=== PATIENT | female | born 1990 | race Caucasian/White ===

== ENCOUNTER 2018-01-21 15:50 | Outpatient (CLI) | payer MEDICAID, SELFPAY ==
[2018-01-21 15:56] VITALS: BMI 31.2
[2018-01-21 16:40] LABS: Hematocrit 33.3 % (37-47); Hemoglobin 11.4 g/dl (12.0-15.0); Mean Corp Hgb Conc 34.2 g/gl (32-36); Mean Corpuscular Hgb 30.6 pg (27.0-32.0); Mean Corpuscular Volume 89.3 fL (81-99); Mean Platelet Vol. 10.5 fl (6.2-12.0); Platelet Count 181 K/mm3 (150-450); RBC Distribution Width CV 13.7 % (11.6-14.6); RBC Distribution Width SD 43.8 fl (35.1-43.9); Red Blood Count 3.73 M/mm3 (4.2-5.4)
[2018-01-21 16:41] LABS: Scan Indicated on CBC? Y/N NO
[2018-01-21 16:50] LABS: Protein, Urine (Random) 110.8 mg/dL (<11.9); Protein:Creat Ratio 710 mg/g CRE (0-200)
[2018-01-21 16:53] LABS: International Normalized Ratio 0.9; Prothrombin Time (Protime)PT. 12.2 SECONDS (11.7-14.9)
[2018-01-21 16:54] LABS: Partial Thromboplast Time 25.8 Seconds (24.1-36.2)
[2018-01-21 16:59] LABS: AST(SGOT) 20 U/L (15-37); Alanine Aminotransfer ALT/SGPT 20 U/L (13-56); EST Glomerular Filtration Rate 127 mL/min (>60); Est Glom Filt Rate - Afr Amer 154 mL/min (>60); Estimated Creatinine Clearance 101.16 ml/min; Uric Acid 6.6 mg/dL (2.6-6.0)
[2018-01-21 17:00] VITALS: BP 161/88; PULSE 71
[2018-01-21] MEDS: Betamethasone/Betamethasone 30 MG/5 ML Vial 12 MG IM (17:26)
--- NOTE | 2018-01-21 17:32 | PCM.HP.OB ---
- Problem List (1) Proteinuria affecting in third trimester Status: Acute (2) Gestational hypertension Status: Acute Qualifiers: Trimester: third trimester Qualified Code(s): O13.3 - Gestational [-induced] hypertension without significant proteinuria, third trimester History Date of Admission: 01/21/18 Final ERASTO: 03/13/18 Final ERASTO Source: US <20 weeks Gestational age: 32 Weeks and 5 Days History of this : Patient presented for routine visit today @ 32.5 weeks without complaint and was noted to have elevated blood pressure x 3 in office (148/92, 150/107, 154/100). +2 proteinuria also noted on random urine dip. Patient asymptomatic; denies any GIBBS, denies scotoma and RUQ pain. Pertinent Past Medical History: Hx of mild Hyperlipidemia mild persistent asthma without complication Seasonal allergies Sterilization consult Hx of kidney stones anxiety Allergies No Known Allergies Allergy (Verified 11/15/17 18:13) Current Medications Betamethasone Acet/Betameth SodPhos (Celestone) 12 mg IM Q24H GONSALO Stop: 01/22/18 17:16 Calcium Gluconate () 1 gm IV X1 PRN PRN Reason: MAGNESIUM TOXICITY Hydralazine HCl (Apresoline) 5 - 10 mg IV Q20M PRN; Protocol PRN Reason: SBP>160/110mmHg Labetalol HCl (Trandate) 20 - 40 mg IV Q10M PRN; Protocol PRN Reason: BP>160/110mmHg Magnesium Sulfate (4 Gm/100 Ml) 2 gm IV X1 PRN PRN Reason: SEIZURE Midazolam HCl (Versed) 2 mg IV Q5M PRN PRN Reason: SEIZURE Smoking Status: Never smoker Alcohol: None Drug Use: none Number of Fetus(es): 1 Physical Exam General: Alert, Oriented x3, Cooperative, No apparent distress Cardiovascular: Regular rate, Regular Rhythm, Normal S1, Normal S2, No murmurs Lungs: Clear to auscultation, Normal air movement Abdomen: Soft, Non Tender, Gravid Extremities:: No edema, Normal pulses, Deep tendon reflexes Estimated gestational size: Appropriate for gestational size Presentation: Cephalic Cervix Dilation (cm): 0 Station: -3 Effacement (%): 0 Assessment/Plan Active and Suspected Problems Proteinuria affecting in third trimester (Acute) Gestational hypertension (Acute) Plan: 27 y/o at 32.5 weeks presents for hypertension and proteuria - Patient seen and examined with normal findings noted. - Hydrochlorothiazide 5mg IV push x 1 - Betamethasone 12mg IM given - Magnesium sulfate bolus 4mg initiated, then 2mg/hour Maintenance drip started - Consultation with M recommendation for transfer given. - Discussed findings and options and patient agrees to transfer to [facility] for further work up. Yecenia Casey CNM in collaboration and consultation with Miracle Ramirez MD
[2018-01-21] MEDS: Magnesium Sulfate 20 GM/500 ML BAG IV (17:50)
[2018-01-21 19:06] LABS: Group B Strep DNA By PCR Negative (Negative); Internal Control PASS; Probe Check PASS; Specimen Processing Control PASS
== END 2018-01-21 18:30 | disposition short-term general hospital (02) ==
LOC: WPOUT 15:54 → WP 15:54
PROVIDERS: Family Provider Family Medicine; PCP Family Medicine; Visit Provider Obstetrics & Gynecology
DX: O14.93 Unspecified pre-eclampsia, third trimester (principal); Z3A.32 32 weeks gestation of pregnancy
CPT/HCPCS: 96365; 96366; 96375; 36415; 59025; 59050; 82565; 82570; 84156; 84450; 84460; 84550; 85027; 85610; 85730; 87081; 87653; 94760; 96372; 99218; J7120; A4216; G0378; J0702

== ENCOUNTER 2018-11-28 10:00 | Emergency (ER) | payer MEDICAID, SELFPAY ==
[2018-11-28 10:02] VITALS: BP 153/105; PULSE 85; RESP 12; TEMP 36.6; O2SAT 100; BMI 29.2
--- NOTE | 2018-11-28 10:21 | ED.VISSUMM ---
- ER Visit Summary Date of Service: 11/28/18 Chief Complaint: Left posterior rib cage pain History of Present Illness: The patient is a 28 F via left posterior rib cage pain that started about a week ago. She denies any obvious fall or trauma. No prior history. She denies shortness of breath. Says it is worse with movement. She denies any chest pain. Said it radiates from her left posterior ribs around the left side of her rib cage. No hemoptysis. No leg swelling. She is never had a pneumothorax or PE before. She has had no recent travel or surgery. She is on control. Physical Examination: Well-appearing young female. Vital signs are stable. She is afebrile. Pulse ox 100% on room air. Her heart rate is 85. She is in no distress. HEENT exam unremarkable. Neck nontender. Lungs clear to auscultation bilaterally. Heart regular rhythm no murmur. Chest wall nontender anteriorly. Abdomen soft and nontender. Normal bowel sounds no peritoneal signs. Extremities patient is moving all 4. Neurovascularly intact. Calves are nontender without edema or cords. Back exam reproducible tenderness over left posterior rib cage. There is no ecchymosis or bruising. No signs of trauma. No bony deformities. No subcu air. Neurologically patient is awake and alert with no focal motor deficits. Test Results: Two-view chest x-ray shows no acute abnormality. Normal cardiac silhouette and lung lauren. No bony abnormalities. Read by myself. Emergency Department Course and Treatment: Reproducible chest wall pain. Repeat exam doing well at 10:38 AM. I went over the x-ray results with the patient. Treatment Plan: Motrin for pain. Ice to the area. Follow-up if not improving. Return if worse. Disposition: Discharge Impression: Acute left posterior rib cage pain secondary to intercostal muscle strain This note was generated with [facility] dictation software. It may contain incorrect words, spelling, and punctuation that were not noted in review of the chart prior to signing ED Disposition - Plan for ED Patient: Chief Complaint: Chest Other Referrals: Jack Longoria MD [Primary Care Provider] -
--- NOTE | 2018-11-28 10:22 | RAD_ITS ---
STUDY: X-RAY CHEST REASON FOR EXAM: Female, 28 years old. Left posterior rib cage pain TECHNIQUE: PA and lateral views of the chest. COMPARISON: None. FINDINGS: The lungs are clear and expanded. There is no demonstrated pleural abnormality. Normal size heart. Normal mediastinum and sofi. Normal visualized pulmonary arteries. Normal visualized aortic arch and descending thoracic aorta. Normal visualized thoracic spine. Normal visualized ribs, clavicles, and shoulders. There is no demonstrated abnormality of the visualized soft tissue structures of the upper abdomen. RAD/Chest PA and Lateral IMPRESSION: Normal x-ray examination of the chest. Electronically Signed: Lorenzo Olivares DO at 10:40 EST Tel , Service support ,
--- NOTE | 2018-11-28 10:39 | ED.DEP ---
ED Disposition - Plan for ED Patient: Disposition: Home or Assisted Living Chief Complaint: Chest Other Instructions: ED Strain Chest Wall Referrals: Jack Longoria MD [Primary Care Provider] - 1 Week if not improving Additional Instructions: Hot shower, warm bath and ice to the area. Motrin for pain and inflammation. All up with not getting better or return to the ER feeling worse.
--- NOTE | 2018-11-28 10:46 | ED.RN ---
DISCHARGE INSTRUCTIONS GIVEN TO AND REVIEWED WITH PATIENT, PATIENT DENIES QUESTIONS OR CONCERNS AND VOICES UNDERSTANDING OF DISCHARGE INSTRUCTIONS. PT AMBULATES OUT OF ROOM WITHOUT DIFFICULTY.
== END 2018-11-28 10:47 | disposition home or self-care (01) ==
PROVIDERS: Emergency Provider Emergency Medicine; Family Provider Family Medicine; PCP Family Medicine
DX: S29.011A Strain of muscle and tendon of front wall of thorax, initial encounter (principal); X58.XXXA Exposure to other specified factors, initial encounter; J45.909 Unspecified asthma, uncomplicated; Z72.0 Tobacco use
CPT/HCPCS: 71046; 99282

== ENCOUNTER 2019-08-16 10:40 | Emergency (ER) | payer MEDICAID, SELFPAY ==
[2019-08-16 10:41] VITALS: BP 156/77; PULSE 89; RESP 12; TEMP 36.4; O2SAT 97; BMI 30.1
--- NOTE | 2019-08-16 10:59 | CT_ITS ---
STUDY: CT ABDOMEN AND PELVIS WITH CONTRAST REASON FOR EXAM: Female, 29 years old. Blood in the stool. RADIATION DOSAGE (If Supplied By Facility): CTDIvol = ( 12.11 ) mGy, DLP = ( 718.32 ) mGycm TECHNIQUE: Transaxial images were obtained from the dome of the diaphragm to the symphysis pubis with oral contrast. IV/Oral Isovue 300 100 was administered. Sagittal and coronal images were reconstructed. Individualized dose optimization techniques were used for this CT. COMPARISON: None. FINDINGS: The visualized lung bases are unremarkable. The visualized portions of the heart are within normal limits. Normal liver. Normal gallbladder and extrahepatic biliary system. Normal spleen. Normal pancreas. Normal bilateral adrenal glands. Normal right kidney. Normal left kidney. There is a small hiatal hernia. Normal small intestine. There is evidence of a colitis involving the left hemicolon down to the rectum as well as the distal portion of the transverse colon. The appendix is visualized and appears normal. Normal abdominal aorta. Normal inferior vena cava. Normal retroperitoneum. Normal urinary bladder. Normal abdominal wall. Normal osseous structures. CT/Abdomen/Pelvis WITH Contrast IMPRESSION: Findings in keeping with colitis of the left hemicolon down to the rectum. Mild changes in the distal aspect of the transverse colon. Electronically Signed: Kosta Groves, at 13:19 EDT , Service support ,
--- NOTE | 2019-08-16 11:00 | ED.VIS.GEN ---
History of Present Illness Chief Complaint: Abd Pain Detail of Chief Complaint: Rectal bleeding Informant: Patient Onset: Today Current Severity: Mild Maximum Severity: Mild Narrative: Patient presents with rectal bleeding anytime she strains to urinate. She has not been passing stool. She denies rectal pain. She had some mild cramping in the lower abdomen. Patient denies history of ulcerative colitis, Crohn's disease, irritable bowel. She did have some hemorrhoids with her first . Past Medical History - Allergies and Home Meds Allergies/Adverse Reactions: Allergies No Known Allergies Allergy (Verified 08/16/19 10:41) Primary Care Physician: Oscar Parr MD [Primary Care Provider] - Prior records reviewed: Yes Past Medical History: - - Reviewed Lives: With Family Smoking Status: Current every day smoker Review of Systems General: Denies: Chills, Fever Eyes: Denies: Visual changes - bilaterally ENT: Denies: Bilateral ear pain Cardiovascular: Denies: Chest pain Respiratory: Denies: Dyspnea, Cough Gastrointestinal: Reports: Abdominal pain, - - Red blood per rectum. Denies: Nausea, Vomiting, Diarrhea Genitourinary: Denies: Dysuria Musculoskeletal: Denies: Extremity Pain Skin: Denies: Rash Neurological: Denies: Headache Endocrine: Denies: Polyuria, Polydipsia Hematologic: Denies: Easy bruising Allergy: Denies: Uticaria Physical Exam Vital Signs/Narrative: Vital Signs Temp Pulse Resp BP Pulse Ox 08/16/19 10:41 97.6 F L 89 12 156/77 H 97 Inital Vital Signs reviewed: Yes General: Well nourished, Well developed Head: Normocephalic ENT: Moist mucous membranes Neck: Supple Cardiovascular: Regular rate, Regular rhythm Respiratory: No distress, CTA bilaterally Abdomen: Soft, Nontender, Hypoactive bowel sounds Extremities: Nontender, No edema Skin: Normal color, No rash Neurological: Alert, Oriented x3 Psychological: Normal affect Diagnostic/Tx/Re-eval Impressions Abdomen/Pelvis CT 08/16/19 10:59 IMPRESSION: Findings in keeping with colitis of the left hemicolon down to the rectum. Mild changes in the distal aspect of the transverse colon. Electronically Signed: Kosta Groves, at 13:19 EDT , Service support , 08/16/19 10:59 Abdomen/Pelvis WITH Contrast [CT] Stat Laboratory Results 08/16/19 08/16/19 08/16/19 11:14 11:14 11:14 WBC 7.5 RBC 4.02 L Hgb 12.1 Hct 36.9 L MCV 91.8 MCH 30.1 MCHC 32.8 RDW Std Deviation 45.3 H RDW Coeff of Joselyn 13.3 Plt Count 252 MPV 8.7 Immature Gran % (Auto) 0.100 Neut % (Auto) 67.4 Lymph % (Auto) 21.7 Jessamine % (Auto) 7.9 Eos % (Auto) 2.8 Baso % (Auto) 0.1 Absolute Neuts (auto) 5.0 Absolute Lymphs (auto) 1.62 Nucleated RBC % 0 PT 13.1 INR 1.0 APTT 25.2 Sodium 138 Potassium 3.8 Chloride 106 Carbon Dioxide 27.0 Anion Gap 5 BUN 12 Creatinine 0.71 Estim Creat Clear Calc 83.98 Est GFR (MDRD) Af Amer 126 Est GFR (MDRD) Non-Af 104 BUN/Creatinine Ratio 17.0 Glucose 88 Calcium 8.7 Serum , Qual 08/16/19 11:14 WBC RBC Hgb Hct MCV MCH MCHC RDW Std Deviation RDW Coeff of Joselyn Plt Count MPV Immature Gran % (Auto) Neut % (Auto) Lymph % (Auto) Jessamine % (Auto) Eos % (Auto) Baso % (Auto) Absolute Neuts (auto) Absolute Lymphs (auto) Nucleated RBC % PT INR APTT Sodium Potassium Chloride Carbon Dioxide Anion Gap BUN Creatinine Estim Creat Clear Calc Est GFR (MDRD) Af Amer Est GFR (MDRD) Non-Af BUN/Creatinine Ratio Glucose Calcium Serum , Qual NEGATIVE - Medical Decision Making Test results discussed with the patient at bedside. She does have evidence of colitis of the left hemicolon and sigmoid. She will be given a dose of Augmentin. We will avoid Flagyl as she states she does drink alcohol on a regular basis. She will be referred to surgery for follow-up as she may need a colonoscopy. ED Disposition - Plan for ED Patient: Disposition: Home or Assisted Living Diagnosis: Colitis Instructions: Bacterial Gastroenteritis Prescriptions: Amox/Clavulanate Tablet [Augmentin Tablet] 875 mg PO Q12H #20 tablet Referrals: Oscar Parr MD [Primary Care Provider] - Molly Redmond MD [STAFF PHYSICIAN] -
[2019-08-16 11:21] LABS: Absolute Lymphocyte Count 1.62 X10^3/uL (0.83-4.51); Basophil# 0.01 X10^3/uL; Basophil% 0.1 % (0-1); Eosinophil# 0.21 X10^3/uL; Eosinophils% 2.8 % (0-5); Hematocrit 36.9 % (37-47); Hemoglobin 12.1 g/dL (12.0-15.0); Lymphocyte # 1.62 X10^3/ul (4.0); Lymphocyte % 21.7 % (19-41); Mean Corp Hgb Conc 32.8 g/dL (32-36); Mean Corpuscular Hgb 30.1 pg (27.0-32.0); Mean Corpuscular Volume 91.8 fL (81-99); Mean Platelet Vol. 8.7 fl (6.2-12.0); Monocyte# 0.59 X10^3/uL; Monocyte% 7.9 % (0-10); NRBC Flagged by Analyzer 0 % (0-5); Neutrophil # 5.02 X10^3/uL (2.7-7.7); Neutrophil % 67.4 % (47-70); Platelet Count 252 K/mm3 (150-450); RBC Distribution Width CV 13.3 % (11.6-14.6); RBC Distribution Width SD 45.3 fl (35.1-43.9); Red Blood Count 4.02 M/mm3 (4.2-5.4); White Blood Count 7.5 K/mm3 (4.4-11.0)
[2019-08-16 11:28] LABS: Prothrombin Time (Protime)PT. 13.1 SECONDS (11.7-14.9)
[2019-08-16 11:29] LABS: Internal QC Validated? YES +Cl - CLEAR BKGD; Partial Thromboplast Time 25.2 Seconds (24.1-36.2); Pregnancy, Serum, hCG Quali. NEGATIVE Negative
[2019-08-16] MEDS: 0.9% Normal Saline 1,000 ML 150 ML IV (11:31)
[2019-08-16 11:34] LABS: Anion Gap 5 (5-15); BUN 12 mg/dL (7-18); Calcium,Total 8.7 mg/dL (8.5-10.1); Chloride 106 mmol/L (98-107); Creatinine, Serum 0.71 mg/dL (0.55-1.02); EST Glomerular Filtration Rate 104 mL/min (>60); Est Glom Filt Rate - Afr Amer 126 mL/min (>60); Estimated Creatinine Clearance 83.98 ml/min; Glucose 88 mg/dL (74-106); Potassium 3.8 mmol/L (3.5-5.1); Sodium Level 138 mmol/L (136-145)
[2019-08-16] MEDS: Amox/Clavulanate 875 MG Tablet PO (13:44)
== END 2019-08-16 13:46 | disposition home or self-care (01) ==
PROVIDERS: Emergency Provider Emergency Medicine; Family Provider Family Medicine; PCP Family Medicine
DX: K52.9 Noninfective gastroenteritis and colitis, unspecified (principal); F17.200 Nicotine dependence, unspecified, uncomplicated
CPT/HCPCS: 74177; 80048; 84703; 85025; 85610; 85730; 96360; 96361; 99283; J7030; Q9967; A4216

== ENCOUNTER 2019-11-09 05:38 | Day surgery (SDC) | payer MEDICAID, SELFPAY ==
--- NOTE | 2019-10-27 11:59 | HP.PCM_ITS ---
History and Physical Date of Admission: 11/09/19 Pre-Op History and Physical ? HPI: The patient is a 29 year old female presenting for pre-operative visit. She is scheduled for?laparoscopic bilateral salpingectomy, for?sterilization request on?. ??Procedure discussed along with risks, benefits and complications. ?Other alternatives discussed for management. Consent form signed??Yes.? PAST MEDICAL HISTORY PAST MEDICAL HISTORY Diagnosis Date ? Anemia ? ? ASCUS with positive high risk HPV cervical 06/2016 ? Asthma ? ? Generalized anxiety disorder ? ? Anxiety, Generalized ? Hyperlipidemia ? ? Kidney stones ? ? Preeclampsia, third trimester 01/21/2018 ? PAST SURGICAL HISTORY PAST SURGICAL HISTORY Procedure Laterality Date ? NONE ? CURRENT MEDICATIONS Current Outpatient Medications Medication Sig Dispense Refill ? fluticasone-vilanterol (BREO ELLIPTA) 200-25 mcg/dose inhaler Inhale 1 Inhalation as instructed once daily. 1 Each 5 ? albuterol HFA (VENTOLIN HFA) 90 mcg/actuation inhaler Inhale 2 Puffs as instructed every 4 hours as needed. 1 Inhaler 5 ? citalopram (CELEXA) 40 mg tablet Take 1 tablet by mouth once daily. 30 tablet 5 ? Levonorgestrel-Ethinyl Estrad (AVIANE) 0.1mg - 20mcg per tablet Take 1 tablet by mouth once daily. 84 tablet 3 ? montelukast (SINGULAIR) 10 mg tablet Take 1 tablet by mouth daily at bedtime. 30 tablet 11 ? fluticasone (FLONASE) 50 mcg/actuation nasal spray Use 1 Olive in each nostril once daily. 1 Bottle 5 ? No current facility-administered medications for this visit.? ? ALLERGIES:?Dogs; Seasonal Allergies ? PERSONAL HISTORY:? SOCIAL HISTORY Social History ? Tobacco Use ? Smoking status: Former Smoker ? ? Packs/day: 1.00 ? ? Years: 4.00 ? ? Pack years: 4.00 ? ? Types: Cigarettes ? ? Last attempt to quit: 05/18/2016 ? ? Years since quittin.4 ? Smokeless tobacco: Never Used ? Tobacco comment: Pt states she Vapes - no nicotine Substance Use Topics ? Alcohol use: Yes ? ? Comment: Rarely ? Drug use: No ? FAMILY HISTORY:? FAMILY HISTORY FAMILY HISTORY Problem Relation Age of Onset ? Stroke Father ? ? Alcohol/Drug Maternal Grandfather ?ETOH ? Cancer Maternal Grandfather ?LUNG CANCER ? Cancer Paternal Grandmother ?BREAST, LUNG ? Diabetes Paternal Grandfather ? ? Lipids Paternal Grandfather ? ? Hypertension Paternal Grandfather ? ? other (bladder cancer) Paternal Grandfather ? ? other (diverticulitis) Sister ? ? other (PCOS) Sister ? ? REVIEW OF SYMPTOMS: GENERAL: denies fevers or chills ENDOCRINOLOGY: has not been on steroids Cardiology : denies palpitations or chest pain Respiratory: denies SOB or cough Hematology: denies history of prolonged bleeding or easy bruising or VTE Allergy: Denies history of personal or family history of allergy to anesthesia ? ? PHYSICAL EXAMINATION: ? VITALS:?not currently . ? GENERAL:??The patient is well nourished, well hydrated in no acute distress. ?, The patient is oriented to time, place, and person. NECK:?Supple. No lynphadenopathy, normal thyroid, no thyromegaly. LUNGS:?Clear to auscultation bilaterally. no wheezes, rhonchi or rales HEART:?Regular rate and rhythm, Normal heart sounds and No murmurs or gallops ? IMPRESSION:?sterilization request ? PLAN:???The risks/benefits/alternatives and personal involved for the planned?laparoscopic bilateral salpingectomy?were reviewed with the patient. Her questions were answered to her satisfaction and she desires to proceed. ?Consent was signed. ?I reviewed with her postop instructions and expectations. ? ? I have reviewed and updated past medical and surgical history, medications and allergies? This history and physical was completed on 10/27/19.
[2019-11-09 06:10] VITALS: BP 133/86; PULSE 86; RESP 14; TEMP 36.6; O2SAT 100; BMI 29.9
[2019-11-09 06:12] LABS: Internal QC Validated? YES +Cl - CLEAR BKGD; Pregnancy, Urine Negative Negative
[2019-11-09] MEDS: Celecoxib 200 MG Capsule PO (06:20)
[2019-11-09] MEDS: Acetaminophen 500 MG Tablet 1000 MG PO (06:20)
[2019-11-09 06:26] LABS: Hematocrit 37.3 % (37-47); Hemoglobin 12.2 g/dL (12.0-15.0); Mean Corp Hgb Conc 32.7 g/dL (32-36); Mean Corpuscular Hgb 29.7 pg (27.0-32.0); Mean Corpuscular Volume 90.8 fL (81-99); Mean Platelet Vol. 9.2 fl (6.2-12.0); Platelet Count 295 K/mm3 (150-450); RBC Distribution Width CV 13.2 % (11.6-14.6); Red Blood Count 4.11 M/mm3 (4.2-5.4); White Blood Count 6.4 K/mm3 (4.4-11.0)
[2019-11-09] MEDS: Lactated Ringers 1,000 ML 30 ML IV (06:31)
--- NOTE | 2019-11-09 07:30 | FALS_PTH ---
PATIENT: NILO FLORES LOC: [facility] U#:[id number] AGE/SX: 29/F ROOM: RE11/09/[address]: Dr. Miracle Ramirez MD : 1990 BED: DIS: 11/09/2019 SPEC #: [id number] RECD: 11/09/19 10:11 STATUS: SUJATHA RIOS #: [id number] SHEA: 11/09/19 07:[address]: Miracle Ramirez DEPT: SURGICAL PATHOLOGY RECD BY: Alden Sexton ENTERED: 11/09/19 12:52 SP TYPE: FALL TUBES OTHR DR: Dr. Oscar Parr MD Tissues: Fallopian tube Procedures: Surgery Specimen Level II HEADER OPERATION: Laparoscopic salpingectomy PRE-OP DIAGNOSIS: Sterilization TISSUE SUBMITTED: Bilateral fallopian tubes MICROSCOPIC DIAGNOSIS Bilateral fallopian tubes, salpingectomy: Bilateral fallopian tubes including fimbrial ends, no pathologic diagnosis. NANCI:trinidad 11/10/19 MICROSCOPIC DESCRIPTION Slides are reviewed. GROSS DESCRIPTION Received is one container labeled with the patient's name and designated bilateral fallopian tubes. The specimen consists of bilateral fallopian tubes including fimbrial ends measuring 4.5 cm in length and 0.5 cm in diameter and 4 cm in length and 0.5 cm in diameter. A third tubular piece is also noted consistent with proximal portion of fallopian tube measuring 1.5 cm in length and 0.3 cm in diameter. Sections do not reveal any mass lesion. The fallopian tubes are not identified as right or left. Sections reveal unremarkable cut surfaces. Apiarist sections are submitted in two cassettes with each cassette containing one fallopian tube. The third smaller piece is present in cassette 2 and inked black. / SJ:trinidad 11/09/19 TC:4 [facility]: [id number] x2
[2019-11-09] MEDS: Bupivacaine Mpf 0.5% 30 ML VIAL (07:57)
--- NOTE | 2019-11-09 08:15 | PCM.DC.TUB ---
Discharge Diet: No Restrictions - Increase fluid intake for the next 48 hours. Discharge Activity: Return to Normal Activity, May Drive - when you are no longer taking pain/narcotic meds., May Shower, May Take a Tub Bath - in 7 days Additional Activity Instructions:: Ambulate often the next week after surgery. Nothing in the vagina for 5 days. Call your doctor if your incision/area has: Continuous Slow Oozing, Sudden Increased Bleeding, Increased Pain/ Swelling, Increased Redness, Foul Smelling Discharge Call your doctor if you observe: Fever of 101 or Higher Allergies/Adverse Reactions: Allergies No Known Allergies Allergy (Verified 11/02/19 09:02) Medications to take at Discharge Albuterol Inhaler [Ventolin Hfa (SP)] 1 - 2 puff INHALATION Q4H PRN PRN 11/15/17 Fluticasone/Vilanterol [Breo Ellipta Inhaler] 1 each IH DAILY 11/15/17 Montelukast [Singulair] 10 mg PO DAILY 11/15/17 Citalopram [Celexa] 40 mg PO DAILY 01/21/18 Hydrocodone/Acetaminophen [[place] 5-325 Tablet] 1 each PO Q6H PRN PRN #12 tablet 11/09/19 Ibuprofen [Motrin] 600 mg PO Q6H PRN #60 tab 11/09/19 Levothyroxine [Synthroid] 25 mcg PO DAILY 11/09/19 The following prescriptions were given: Ibuprofen [Motrin] 600 mg PO Q6H PRN #60 tab PRN Reason: Pain [facility] Hydrocodone/Acetaminophen [[place] 5-325 Tablet] 1 each PO Q6H PRN PRN #12 tablet PRN Reason: Pain Score 6-10/10 Transmission Status: Received by [facility] Primary Care Physician: Oscar Parr MD [Primary Care Provider] - Test Results: Test results from this visit will be discussed in further detail at your follow-up appointment, if applicable. Please Follow Up With: Miracle Ramirez MD - [phone] When: as needed
--- NOTE | 2019-11-09 08:15 | PCM.OPRPT ---
Report of Operation Date of Procedure: 11/09/19 Pre-Operative Diagnosis: sterilization request Post-Operative Diagnosis: same Surgery/Procedure Performed:: laparoscopic bilateral salpingectomy Description of Surgical Findings:: normal uterus, tubes and ovaries criminal researcher: Darnell Villalobos Type of Anesthesia:: General Anesthesiologist: Norman Clark Special Medications: none Specimen's removed: bilateral fallopian tubes Drains: none Estimated Blood Loss (mL): 5 Fluids Replaced: 1000 cc LR Description of Procedure: The patient was taken to the operating room where she was prepped and draped in the dorsolithotomy position. A weighted speculum was placed in the vagina and the anterior lip of the cervix was grasped with a tenaculum. The Ashlee uterine manipulator was placed and the remainder of the instruments were removed from the vagina. Attention was turned to the abdomen. All port sites were infiltrated with 0.5% Marcaine before skin incisions were made. A 5 mm intraumbilical incision was made. The anterior abdominal wall was tented up with 2 towel clamps while a 5 mm blade less trocar and sleeve were directly inserted. Intraperitoneal placement was confirmed with the laparoscope. The pneumoperitoneum was created and the underlying abdominal contents were intact. The patient was placed in Trendelenburg. Right and left lower quadrant ports were placed under direct visualization lateral to the inferior epigastric vessels. The bowel was swept away and the above findings were noted. The LigaSure device was used to clamp seal and transect the antimesenteric portions of the right tube to the cornual insertion of the uterus. The tube was amputated from the uterus and the pedicles were all confirmed to be hemostatic. The same procedure was performed on the contralateral side. The specimens were brought out through a 5 mm port. The pedicles were again examined and found to be hemostatic. The lateral ports were removed under direct visualization and no active bleeding was noted. The pneumoperitoneum was released. The skin incisions were closed with Monocryl suture in a subcuticular fashion and skin glue the SOCIAL WORK PROFESSOR with me present in the operating suite. The vaginal instruments were removed and the vaginal sweep was completed by me. The procedure was performed by me with assistance other than as dictated above. All sponge and needle counts were correct and the patient was taken to the recovery room in stable condition. Grafts/Implants Used: none - Complications none - Admit VTE Documentation VTE Present on Admission: No VTE Mechan Device Prophylaxis: SCD's VTE Pharm Prophylaxis ordered?: No Reason prophylaxis not ordered:: Procedure Not Indicated
[2019-11-09 08:27] VITALS: BP 133/86; BP 141/76; PULSE 88; RESP 16; TEMP 36.7; O2SAT 100
[2019-11-09 08:30] VITALS: BP 133/86; BP 135/81; PULSE 87; RESP 16; O2SAT 99
[2019-11-09 08:45] VITALS: BP 130/78; BP 133/86; PULSE 87; RESP 16; O2SAT 96
[2019-11-09 08:49] VITALS: BP 133/86; BP 134/89; PULSE 92; RESP 16; TEMP 36.7; O2SAT 100
[2019-11-09 09:38] VITALS: BP 133/86
== END 2019-11-09 09:40 | disposition home or self-care (01) ==
LOC: SDC 05:39 → AC 05:40
PROVIDERS: Family Provider Family Medicine; PCP Family Medicine; Referring Provider Obstetrics & Gynecology; Visit Provider Obstetrics & Gynecology
PROC: (CPT 58661; principal; 2019-11-09 07:15)
DX: Z30.2 Encounter for sterilization (principal); D64.9 Anemia, unspecified; J45.909 Unspecified asthma, uncomplicated; E78.5 Hyperlipidemia, unspecified; E07.9 Disorder of thyroid, unspecified; F41.1 Generalized anxiety disorder; F17.290 Nicotine dependence, other tobacco product, uncomplicated; Z79.899 Other long term (current) drug therapy
CPT/HCPCS: 00840; 58661; 36415; 81025; 85027; 88302; J7120; J2405

== ENCOUNTER 2025-07-06 09:41 | Emergency (ER) | payer OTHER, SELFPAY ==
[2025-07-06 09:43] VITALS: BP 138/96; PULSE 94; RESP 16; TEMP 36.8; O2SAT 100; BMI 25.5
--- NOTE | 2025-07-06 10:26 | EX.ED.DYSGE1 ---
HPI History of Present Illness Chief Complaint: Back Narrative Narrative: 35-year-old female history of hypothyroidism, asthma presents emergency department for complaint of pain in her upper back. Patient states that she was at work on Wednesday lifting heavy barrels of trash and began to have pain over the right side of her upper back behind her shoulder blades. Denies any fall, injury, numbness, weakness, bowel or bladder incontinence/retention, fevers. Patient states that she has been ambulating without difficulty. Has been to urgent care on several occasions had x-rays of her thoracic spine which they stated was fine. She has been trying ice packs and steroid pack which she was given with no relief. Last took Tylenol around 6 AM this morning. Denies any chance of . Patient states pain is made worse with taking deep breaths and concerned it may be her ribs in the back. PFSH PFS Home Medications ?Medication ?Instructions ?Recorded ?Last Taken ?Type albuterol sulfate 90 mcg/actuation 2 puff inhalation Q4 PRN 07/06/25 Unknown History aerosol inhaler citalopram 40 mg tablet 40 mg PO QDAY 07/06/25 Unknown History cyclobenzaprine 10 mg tablet 10 mg PO TID PRN Muscle Spasm #20 07/06/25 Unknown Rx TABLETS fluticasone furoate 100 1 ea inhalation QDAY 07/06/25 Unknown History mcg-vilanterol 25 mcg/dose inhalation powder (Breo Ellipta) levothyroxine 25 mcg tablet 25 mcg PO QDAY 07/06/25 Unknown History lidocaine 5 % topical patch 1 patch topical DAILY #15 ea 07/06/25 Unknown Rx montelukast 10 mg tablet 10 mg PO QDAY 07/06/25 Unknown History (Singulair) prednisone 20 mg tablet 20 mg PO QDAY 07/06/25 Unknown History sumatriptan succinate 100 mg tablet 100 mg PO PRN headache 07/06/25 Unknown History Allergy/AdvReac Type Severity Reaction Status Date / Time animal dander Allergy Mild Other Verified 07/06/25 09:44 Environmental Allergies: Allergy Mild Other Verified 07/06/25 09:44 Uncoded (seasonal) Social History Smoking Status: Current every day smoker tobacco type: e-cigarettes Tobacco: How many years used: 4 EXAM Physical Exam Const Vital Signs: 07/06/25 09:43 Temperature 98.3 F Temperature Source Oral Pulse Rate 94 Respiratory Rate 16 Blood Pressure 138/96 H Blood Pressure Mean 110 Pulse Ox 100 Oxygen Delivery Method Room Air Positive well nourished, average body habitus and no limitations General Appearance ED: active and comfortable HEENT Reports normocephalic Eyes PERRL and EOMs intact bilaterally Neck full ROM and No nuchal rigidity Chest Wall inspection of chest normal and palpation of chest normal Resp normal respiratory effort, normal air movement and clear to auscultation bilaterally Effort and Inspection: able to speak in complete sentences Cardio regular rate and no murmurs Peripheral Pulses: pulses 2+ throughout GI Palpation: soft; Negative for tender no CVA tenderness Back/Spine normal ROM, no thoracic nor lumbar tenderness, thoraco-lumbar ROM normal and straight leg raise negative bilaterally Back/Spine Narrative: posterior tenderness over the upper thoracic erector spinae and posterior ribs T3-T5. No midline bony tenderness Cervical Spine: cervical ROM normal Thoracic Spine / Upper Back: normal to inspection, thoracic ROM normal and paraspinal muscle tenderness Lumbar Spine / Lower Back: normal to inspection and lumbar ROM normal Neuro oriented x3 Motor Exam: strength 5/5 throughout MDM MDM MDM Narrative Medical decision making narrative: 35-year-old female history of hypothyroidism, asthma presents emergency department for complaint of pain in her upper back. Patient states that she was at work on Wednesday lifting heavy barrels of trash and began to have pain over the right side of her upper back behind her shoulder blades. Denies any fall, injury, numbness, weakness, bowel or bladder incontinence/retention, fevers. Patient states that she has been ambulating without difficulty. Has been to urgent care on several occasions had x-rays of her thoracic spine which they stated was fine. She has been trying ice packs and steroid pack which she was given with no relief. Last took Tylenol around 6 AM this morning. Denies any chance of . Patient concerned that is possibly her ribs with saying that it is worse with deep breathing. On physical exam patient notably tender over the posterior upper thoracic ribs on the right. No midline bony tenderness, full range of motion of spine. No sensory or motor deficits. Low suspicion for any cord compression syndrome as patient denying any urinary symptoms, saddle anesthesia weakness or sensory deficits. Patient states that she did have x-ray of thoracic spine which she was able to pull up on her MyChart showing negative findings for traumatic injuries or abnormalities. Suspect this is more likely rib or muscle skeletal pain. X-ray rib findings showing no evidence of fracture, dislocation or other acute cardiopulmonary process. Patient given IM Toradol and Norflex. On reevaluation patient is appearing more comfortable stating she is feeling much better, moving all extremities for range of motion. Suspect this more likely muscle spasm versus strain. Vital stable. Patient agreeable for follow-up with PCP within 1 week and discharge with return precautions given. Radiography Diagnostic Testing: Clinical Impression(s) from Imaging Studies Ribs w/Chest X-Ray 07/06/25 10:45 IMPRESSION: Unremarkable examination. Reading Location: [place] [address] Discharge Plan Triage Chief Complaint: Back ED Provider: Larisa Mejia Dx/Rx/DC Orders Clinical Impression: Muscle strain of right upper back Prescriptions: New lidocaine 5 % adhesive patch,medicated 1 patch topical DAILY Qty: 15 0RF Rx Instructions: leave on most painful area for up to 12 hrs cyclobenzaprine 10 mg tablet 10 mg PO TID PRN (Reason: Muscle Spasm) Qty: 20 0RF No Action prednisone 20 mg tablet 20 mg PO QDAY fluticasone furoate-vilanterol [Breo Ellipta] 100-25 mcg/dose blister with device 1 ea inhalation QDAY albuterol sulfate 90 mcg/actuation HFA aerosol inhaler 2 puff inhalation Q4 PRN sumatriptan succinate 100 mg tablet 100 mg PO PRN (Reason: headache) citalopram 40 mg tablet 40 mg PO QDAY levothyroxine 25 mcg tablet 25 mcg PO QDAY montelukast [Singulair] 10 mg tablet 10 mg PO QDAY Primary Care Provider: Oscar Parr Activity Restrictions/Additional Instructions: You may take up to 1000 mg Tylenol and 800 mg ibuprofen every 6 hours as needed for pain. Do not drive or operate heavy machinery under the influence of muscle laxer's as they are sedating. No heavy lifting greater than 20 pounds until you had been cleared by physician and no longer having pain. Print Language: Albanian Disposition Disposition: Home, Self Care
[2025-07-06] MEDS: Ketorolac 30 MG/ML Syringe IM (10:42)
[2025-07-06] MEDS: Orphenadrine 60 MG/2 ML Ampul IM (10:43)
--- NOTE | 2025-07-06 10:45 | RAD_ITS ---
PROCEDURE: RIBS UNI MIN 3V W/PA CHEST 07/06/2025 REASON FOR EXAM: RIGHT SIDED POSTERIOR UPPER RIB PAIN TECHNIQUE: RIBS UNI MIN 3V W/PA CHEST COMPARISON: None FINDINGS: Findings: The lungs are clear. No rib abnormality is seen. Other: RAD/Ribs Uni Min 3V w/PA Chest IMPRESSION: Unremarkable examination. Reading Location: [place] [id number]
[2025-07-06 11:42] VITALS: PULSE 88; RESP 17; O2SAT 96
[2025-07-06 12:21] VITALS: BP 138/96; PULSE 88; RESP 18; TEMP 36.8; O2SAT 97
== END 2025-07-06 12:23 | disposition home or self-care (01) ==
LOC: ED 11:36
PROVIDERS: Emergency Provider Student in an Organized Health Care Education/Training Program; PCP Family Medicine; Visit Provider Student in an Organized Health Care Education/Training Program
DX: S29.012A Strain of muscle and tendon of back wall of thorax, initial encounter (principal); X50.0XXA Overexertion from strenuous movement or load, initial encounter; Y93.89 Activity, other specified; Y92.89 Other specified places as the place of occurrence of the external cause; E03.9 Hypothyroidism, unspecified; Z79.890 Hormone replacement therapy; J45.909 Unspecified asthma, uncomplicated; Z79.51 Long term (current) use of inhaled steroids; F17.290 Nicotine dependence, other tobacco product, uncomplicated
CPT/HCPCS: 71101; 96372; 99282

== ENCOUNTER 2025-08-01 13:00 | Outpatient (RCR) | payer OTHER, SELFPAY ==
--- NOTE | 2025-07-11 10:51 | HP.PTEVAL ---
Patient's Visit Information Visit Information Visit Information: NILO FLORES is a 35 year old F referred to Physical Therapy by KENROY Romero with a diagnosis of Strain of thoracic wall. Date of Evaluation: 07/11/25 Physical Therapist: Fletcher Vines, PT, ATC Visit Plan Frequency: 3x /Week Duration: 4 Weeks Plan: Postural edu, scap stab ex's, DTR, IFC, and HEP Subjective Subjective: DOI: 07/03/25. 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 pt notes the barrels she had to dump were 35-40 gallon containers. Pt notes when she attempted to dump these containers, she injured her back. Pt notes she has been in severe pain since. Pt had 2 x-rays since this injury which revealed no fractures. Pt denies any PMHx of pain like this. Pt reports most of her pain is located in the interscapular region of her thoracic spine. Pt has been given muscle relaxers and a lidocaine patch which have made very minimal difference at this time. Pt denies tingling or numbness in UE's or LE's. Pt reports significant sleep difficulty at this time secondary to pain. Pt reports she has been confined to her recliner for the past several days secondary to her pain which has made her miss all of her kids activities. Pt reports her pain is 7/10 at rest today, and increases to a 9/10 at worst. Pain T/S: Pain Intensity (Out of 10): 7 Pain Intensity Range: 9 Objective Objective: Neuro: B UE and LE sensation is WNL to light touch throughout MMT: B UE is 3/5 throughout and painful with all testing. B LE MMT is 5/5 throughout Palpation: Pt has severe pain along the medial edge of R scapula. Pt is also very painful throughout cervical spine R side. ROM: Pt is severely limited in all motions of the thoracic spine. Pt is painful with all motions. Repeated movements: Repeated thoracic spine flex and extension increases pain. Balance/Special Test Scores Oswestry Low Back Score: 25 Goals Goal 1:: Decrease T/S pain x 50% to aid with sleep Goal Time Frame: 4-6 Weeks Goal 2:: Increase T/S ROM in all planes by one grade to aid with IADL's Goal Time Frame: 4-6 Weeks Goal 3:: Increase B UE strength x 1 grade to aid with return to work. Goal Time Frame: 4-6 Weeks Goal 4:: I with HEP Goal Time Frame: 4-6 Weeks Rehabilitation Potential Physical Therapy Diagnosis: Pt has pain, limited T/S ROM, and difficulty with sleep at this time secondary to pain. Rehabilitation Potential: Good Anticipated Interventions Patient/Client Instruction: Educate patient on: Condition and Plan of Care For the Purpose of:: To improve self management Therapeutic Exercise to Include: Strength training, Endurance training, Body mechanics, Postural training, Active ROM and Scapular Strength/Stabilization For the Purpose of:: To decrease pain, To increase ROM and To improve muscle performance and motor function IF ES: Yes For the Purpose of:: To decrease pain Text: Thank you for the opportunity to evaluate your patient. For Medicare and Medicare HMO plans, please review the plan of care and approve it. It will need to be FAXED BACK to us at [phone] for Medicare purposes. For Medicare only, by signing this I certify the plan of care. Please let me know if there are questions or concerns regarding this plan of care. Physician Signature: Date:
== END 2025-08-01 19:00 | disposition home or self-care (01) ==
LOC: PT 13:00
PROVIDERS: PCP Family Medicine; Referring Provider Physician Assistant; Visit Provider Physician Assistant
DX: S29.012A Strain of muscle and tendon of back wall of thorax, initial encounter (principal)
CPT/HCPCS: 97014; 97110; 97161; 97530; G0283